=== PATIENT | female | born 1980 | race Hispanic/Latino ===

== ENCOUNTER → 2025-01-03 | Outpatient (CLI) | payer BC ==
[~2025-01-03] MED LIST: DIATR MEGLU/DIATRIZOATE SODIUM 30 ML BOTTLE ONE
--- NOTE | 2025-01-03 13:31 | HMCIMG ---
UPPER GI TRACT, WO KUB REASON: Other complications of gastric band procedure/Bariatric surgery status. COMPARISON: None TECHNIQUE: Biphasic upper GI series study was performed. FINDINGS: There is no obstruction to the antegrade passage of barium from mouth through jejunum. Post gastric band procedure changes are noted. Gastric wall thickening is seen. No evidence of hiatal hernia is seen. There is gastroesophageal reflux into the level of upper mid thoracic esophagus. IMPRESSION: No obstruction. Gastroesophageal reflux to the level of upper mid thoracic esophagus. Gastric band procedure changes.
== END | disposition home or self-care (01) ==
LOC: RAH 08:54
PROVIDERS: ATTEND Internal Medicine Gastroenterology
DX: K21.9 Gastro-esophageal reflux disease without esophagitis (principal); K95.09 Other complications of gastric band procedure; Z98.84 Bariatric surgery status
CPT/HCPCS: 74240; Q9963